=== PATIENT | male | born 1960 | race Caucasian/White ===

== ENCOUNTER 2019-12-14 15:06 | Emergency (ER) | payer BC ==
[2019-12-14] MEDS ORDERED: Dextrose 50% Abboject 50 ML SYRINGE ONE (15:25)
[2019-12-14] MEDS ORDERED: Iopamidol 370 76% 100 ML VIAL ONE (15:25)
[2019-12-14 15:33] LABS: #Basophils 0.1 thou/uL (0.0-0.2); #Eosinphils 0.1 thou/uL (0.0-0.7); #Lymphocytes 0.9 thou/uL (1.20-3.40); #Neutrophils 11.1 thou/uL (1.40-6.50); %Basophils 0.6 % (0.0-1.0); %Eosinophils 0.5 % (0.0-10.0); %Lymphocytes 6.6 % (21.0-51.0); %Monocytes 7.3 % (0.0-10.0); %Neutrophils 85.1 % (42.0-75.0); Hemoglobin 16.1 g/dL (14.0-18.0); Mean Corpuscular HGB CONC 31.2 g/dL (32.0-36.0); Mean Corpuscular Hemoglobin 30.3 pg (27.0-31.0); Mean Corpuscular Volume 96.9 fL (78.0-98.0); Mean Platelet Volume 7.3 fL (7.4-10.4); Platelet Count 287 thou/uL (130-400); RBC Distribution Width 12.2 % (11.5-14.5); Red Blood Cell (RBC) Count 5.32 mill/uL (4.70-6.10)
[2019-12-14 15:36] LABS: Prothrombin Time 13.3 sec (12.0-14.7)
[2019-12-14 15:47] LABS: ALT (SGPT) 32 U/L (8-55); AST (SGOT) 20 U/L (5-34); Albumin 4.9 g/dL (3.4-4.8); Alkaline Phosphatase 85 U/L (40-110); Anion Gap 18 mmol/L (10-20); BUN (Urea Nitrogen) 19 mg/dL (8.4-25.7); Bilirubin, Total 0.4 mg/dL (0.2-1.2); Calc. Creatinine Clearance 0 mL/min (70-130); Calcium 9.7 mg/dL (7.8-10.44); Carbon Dioxide 27 mmol/L (23-31); Chloride 102 mmol/L (98-107); Estimated GFR-MDRD 82; Globulin 2.7 g/dL (2.4-3.5); Potassium 4.2 mmol/L (3.5-5.1); Protein, Total 7.6 g/dL (5.8-8.1); Sodium 143 mmol/L (136-145)
[2019-12-14 15:51] LABS: Glucose 47 mg/dL (80-115)
[2019-12-14] MEDS ORDERED: Aspirin Chewable 81 MG TAB ONE (16:01)
--- NOTE | 2019-12-14 16:13 | CT ---
CTA of the head with IV contrast and 3-D reformatted imaging. CTA of the neck with IV contrast and 3-D reformatted imaging. INDICATION: Stroke COMPARISON: Noncontrast CT of the brain dated December 14, 2019. FINDINGS: CTA OF THE HEAD WITH CONTRAST: CTA OF THE BRAIN: Right ICA: Patent. Right MCA: Patent. Right TIANA: Patent. ACOM: Patent. Left ICA: Patent. Left MCA: Patent. Left TIANA: Patent. PCOMs: Patent. Vertebral arteries: Patent. Basilar Artery: Patent. 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 Both assistant womens volleyball coach are patent. Incidentals: No abnormal enhancement CTA OF THE NECK WITH CONTRAST: Right CCA: Patent. Right ICA: Patent. Right Subclavian: Patent. Right Vertebral Artery: Patent. Left CCA: Patent. Left ICA: Patent. Left Subclavian: Patent. Left Vertebral Artery: Patent. Aerodigestive tract: Clear. Parotids/Submandibular/Thyroid glands: There is a 1 cm hypodensity within the lower pole right thyro id gland. The visualized submandibular and parotid glands are normal appearing. Lymph nodes: No pathologically enlarged lymph nodes. Lung Apices: Clear. Bones: No acute osseous abnormality. Incidentals: None. IMPRESSION: 1. No hemodynamically significant stenosis, occlusion or aneurysmal formation.
--- NOTE | 2019-12-14 16:38 | CT ---
CT BRAIN 12/14/19 PROVIDED CLINICAL HISTORY: Left sided weakness. FINDINGS: No comparisons. The ventricular system appears normal in size and morphology. There is no evidence fo r intracranial hemorrhage or mass effect. The osseous structures and extracranial soft tissues demon strate an unremarkable CT appearance. IMPRESSION: No evidence for intracranial hemorrhage or mass effect. Findings communicated to Dr. Russo at 3:45 p.m ., 12/14/19. Code CR POS: [id number]
[2019-12-14 16:49] LABS: Bilirubin Negative (Negative); Blood, Urine Negative (Negative); Clarity Clear (Clear); Glucose, Urine (Dipstick) 100 mg/dL (Negative); Ketone, Urine Moderate mg/dL (Negative); Leukocyte Negative (Negative); Nitrite Negative (Negative); Protein, Urine (Dipstick) Negative (Neg-Trace); Urobilinogen 0.2 mg/dL (Less than 2)
--- NOTE | 2019-12-14 20:31 | RAD ---
PORTABLE CHEST: 12/14/19 An AP portable film at 1629 shows the heart to be normal in size for age and an AP film. There is no vascular congestion, edema, or pleural effusion. IMPRESSION: No acute finding. POS: HOME
== END 2019-12-14 17:28 | disposition short-term general hospital (02) ==
LOC: BURERS 15:06
DX: I63.9 Cerebral infarction, unspecified (principal); E11.649 Type 2 diabetes mellitus with hypoglycemia without coma; R29.700 NIHSS score 0; E78.5 Hyperlipidemia, unspecified; I10 Essential (primary) hypertension; F17.220 Nicotine dependence, chewing tobacco, uncomplicated; Z79.899 Other long term (current) drug therapy; Z79.82 Long term (current) use of aspirin; Z79.4 Long term (current) use of insulin
CPT/HCPCS: 36415; 36416; 70450; 70496; 70498; 71045; 80053; 81003; 84484; 85025; 85610; 85730; 93005; 94760; 96374; Q9967

== ENCOUNTER 2023-01-27 14:30 | Emergency (ER) | payer BC ==
[2023-01-27] MEDS ORDERED: traMADol HCl 50 MG TAB ONE (15:15)
== END 2023-01-27 15:49 | disposition home or self-care (01) ==
LOC: BURERS 14:30
DX: S52.572A Other intraarticular fracture of lower end of left radius, initial encounter for closed fracture (principal); W18.30XA Fall on same level, unspecified, initial encounter
CPT/HCPCS: 29105